=== PATIENT | female | born 1950 ===

== ENCOUNTER 2024-04-20 07:15 | Inpatient (IN) | payer OTHER ==
[~2024-04-20] VITALS: Ht 157.5 cm; Wt 68.0 kg
[2024-04-20] MEDS ORDERED: NORVASC2.5 M1 PO (08:18)
[2024-04-20] MEDS ORDERED: LOSARTAN POTASS50 MG PO (08:19)
[2024-04-20] MEDS ORDERED: TOPROL XL100 M1 PO (08:19)
[2024-04-20] MEDS ORDERED: GLIMEPIRIDE2 M1 PO (08:19)
[2024-04-20] MEDS ORDERED: ORAPRED ODT10 MG PO (08:20)
[2024-04-20] MEDS ORDERED: XARELTO15 MG PO (08:20)
[2024-04-20] MEDS ORDERED: HORIZANT300 MG PO (08:20)
[2024-04-20] MEDS ORDERED: SULFAMETHOXAZO1 EACH PO (08:21)
[2024-04-20] MEDS ORDERED: ENVARSUS XR1 MG PO (08:21)
[2024-04-20] MEDS ORDERED: PEPCID AC20 MG PO (08:22)
[2024-04-20] MEDS ORDERED: PROTONIX40 MG PO (08:22)
[2024-04-20] MEDS ORDERED: SURFAK240 M1 PO (08:22)
[2024-04-20] MEDS ORDERED: FOLIC ACID20 MG PO (08:23)
[2024-04-20] MEDS ORDERED: IRON236 MG PO (08:23)
[2024-04-20] MEDS ORDERED: B12 ACTIVE1000 MCG PO (08:24)
[2024-04-20] MEDS ORDERED: VITAMIN C500 M6 PO (08:24)
[2024-04-20 08:32] LABS: URINE APPEARANCE Clear; URINE BILIRRUBIN Negative (NEGATIVE); URINE BLOOD Negative; URINE COLOR Yellow; URINE GLUCOSE Negative (NEGATIVE); URINE KETONE Negative (NEGATIVE); URINE LEUKOCYTE Negative; URINE NITRATE Negative; URINE PROTEIN Negative (NEGATIVE); URINE UROBILINOGEN 0.2 E.U./dl
[2024-04-20 08:32] LABS: HEMOGLOBIN 12.3 g/dL (12.0-15.00); MEAN CELL VOLUME 86.3 fL (80.00-100.00); MEAN CORPUSCULAR HEMOGLOBIN 28.7 pg (27.00-32.0); MEAN CORPUSCULAR HGB CONC 33.2 g/dl (32.0-36.0); PLATELET COUNT 287 K/uL (150-450); RED BLOOD COUNT 4.29 M/uL (4.00-6.00); RED CELL DISTRIBUTION WIDTH 15.8 % (11.5-14.5)
[2024-04-20 08:36] LABS: URINE BACTERIA 7.5 uL (0.0-1933); URINE WBC 4.4 uL (0.0-23.2)
[2024-04-20 08:46] LABS: URINE EPITHELIAL CELLS 0.9 uL (0.0-38.8)
[2024-04-20 09:16] LABS: INR 1.04; PARTIAL THROMBOPLASTIN TIME 27.8 SECONDS (22.0-34.0); PROTHROMBIN TIME 10.9 SECONDS (9.0-11.5)
[2024-04-20 09:43] LABS: ALBUMIN 4.2 gm/dL (3.4-5.0); BILIRUBIN TOTAL 0.38 mg/dL (0.3-1.2); CALCIUM 9.7 mg/dL (8.5-10.1); CREATININE SERUM 0.8 mg/dL (0.55-1.02); GFR 70.71; GLOBULINA 3.8 G/DL (2.4-3.5); POTASSIUM 4.29 mEq/L (3.5-5.1)
[2024-05-11] MEDS ORDERED: ENALAPRILAT DIHYDRATE 1.25 MG/ML VIAL IV ONE (16:11)
[2024-05-11] MEDS ORDERED: CEFOXITIN SODIUM 1,000 MG VIAL IV ONE (16:15)
[2024-05-11] MEDS ORDERED: LIDOCAINE HCL 1%/EPINEPHRINE 20ML VIAL IJ ONE (16:15)
[2024-05-11] MEDS ORDERED: BUPIVACAINE HCL/PF 0.25% 30ML VIAL InF ONE (16:15)
[2024-05-11] MEDS ORDERED: CEFOXITIN SODIUM 1,000 MG in DEXTROSE 5 % IN WATER 50 ML IV SCH (17:00)
[2024-05-11] MEDS ORDERED: MORPHINE SULFATE 4 MG/ML CARTRIDGE IV SCH (17:00)
[2024-05-11] MEDS ORDERED: FAMOTIDINE/PF 20 MG/2 ML VIAL IV SCH (17:00)
[2024-05-11] MEDS ORDERED: FAMOTIDINE/PF 20 MG/2 ML VIAL ONE (19:31)
[2024-05-12] MEDS ORDERED: DEXTROSE 5%-WATER 50ML IV.SOLN ONE (01:33)
[2024-05-12] MEDS ORDERED: AMLODIPINE BESYLATE 2.5 MG TABLET PO SCH (13:34)
[2024-05-12] MEDS ORDERED: ACETAMINOPHEN 500 MG GEL..CAP PO PRN (13:45)
[2024-05-12] MEDS ORDERED: INSULIN LISPRO 1,000 UNIT/10 ML UNITS SUBCUTANEO PRN (13:45)
[2024-05-12] MEDS ORDERED: ENALAPRILAT DIHYDRATE 1.25 MG/ML VIAL IV PRN (13:45)
[2024-05-12] MEDS ORDERED: DEXTROSE 50 % IN WATER 0.5 G/ML DISP.SYRIN IV PRN (13:45)
[2024-05-12] MEDS ORDERED: METOPROLOL SUCCINATE 100 MG TAB.SR.24H PO SCH (13:45)
[2024-05-12] MEDS ORDERED: METOPROLOL SUCCINATE 100 MG TAB.SR.24H PO STA (14:04)
[2024-05-12] MEDS ORDERED: AMLODIPINE BESYLATE 2.5 MG TABLET PO STA (14:04)
[2024-05-13] MEDS ORDERED: LOSARTAN POTASSIUM 50 MG TABLET PO SCH (09:00)
[2024-05-13] MEDS ORDERED: METOCLOPRAMIDE HCL 5 MG/ML VIAL IV SCH (13:00)
[2024-05-13] MEDS ORDERED: LORazepam 1 MG TABLET PO SCH (21:00)
[2024-05-14 06:38] LABS: MEAN CELL VOLUME 86.5 fL (80.00-100.00); MEAN CORPUSCULAR HGB CONC 33.9 g/dl (32.0-36.0); PLATELET COUNT 253 K/uL (150-450); RED BLOOD COUNT 3.35 M/uL (4.00-6.00); RED CELL DISTRIBUTION WIDTH 15.3 % (11.5-14.5)
[2024-05-14 07:23] LABS: MEAN CORPUSCULAR HEMOGLOBIN 29.2 pg (27.00-32.0)
[2024-05-14 07:24] LABS: HEMOGLOBIN 9.8 g/dL (12.0-15.00)
[2024-05-14 07:48] LABS: BILIRUBIN TOTAL 0.74 mg/dL (0.3-1.2); CALCIUM 8.9 mg/dL (8.5-10.1); CREATININE SERUM 0.74 mg/dL (0.55-1.02); GFR 77.14; GLOBULINA 3.2 G/DL (2.4-3.5); POTASSIUM 4.05 mEq/L (3.5-5.1); TOTAL PROTEIN 6.2 gm/dL (6.4-8.2)
[2024-05-14] MEDS ORDERED: PREDNISONE 1 MG TABLET PO SCH (09:00)
[2024-05-14] MEDS ORDERED: LORazepam 0.5 MG TABLET PO SCH (09:00)
[2024-05-14] MEDS ORDERED: FOLIC ACID 1 MG TABLET PO SCH (09:00)
[2024-05-14] MEDS ORDERED: RIVAROXABAN 15 MG TABLET PO SCH (09:00)
== END 2024-05-15 15:50 | disposition home or self-care (01) | DRG 331 ==
LOC: SURH 04-25 07:00 → O/R 05-11 08:07 → SURH 05-11 17:33
PROVIDERS: Internal Medicine; ADMIT Surgery; ATTEND Surgery
PROC: 0DTF4ZZ Resection of Right Large Intestine, Percutaneous Endoscopic Approach (ICD-10-PCS; principal; 2024-05-11 07:00)
DX: C18.2 Malignant neoplasm of ascending colon (principal); R59.0 Localized enlarged lymph nodes; E11.9 Type 2 diabetes mellitus without complications; I10 Essential (primary) hypertension